=== PATIENT | female | born 2000 | race Caucasian/White ===

== ENCOUNTER 2018-06-24 17:42 | Emergency (ER) | payer SELFPAY ==
[2018-06-24 17:46] VITALS: BMI 30.2
[2018-06-24 17:48] VITALS: BP 124/84; PULSE 112; RESP 18; TEMP 98.1; O2SAT 98
--- NOTE | 2018-06-24 18:20 | C.PDOC ---
History Of Present Illness 18 y/o female with no PMHx presents to the ED complaining of diffuse abdominal pain for 2 days. When asked to point to location, patient currently indicates epigastric pain, however she notes the pain has been "moving around" the abdomen. Patient also complains of bilateral leg pain. Mom at bedside noticed patient has complained of pruritic rash to the bilateral axilla and groin area for 2-3 weeks. Patient has been scratching the areas a lot, and also reports weird smell to affected areas. Otherwise she denies any fevers, chills, nausea, vomiting, or diarrhea. Time Seen by Provider: 06/24/18 18:17 Chief Complaint (Nursing): Female Genitourinary History Per: Patient History/Exam Limitations: no limitations Onset/Duration Of Symptoms: Days (x 2) Current Symptoms Are (Timing): Still Present Location Of Pain/Discomfort: Epigastric Past Medical History Reviewed: Historical Data, Nursing Documentation, Vital Signs Vital Signs: Last Vital Signs Temp 98.1 F 06/24/18 17:45 Pulse 112 H 06/24/18 17:45 Resp 18 06/24/18 17:45 BP 124/84 06/24/18 17:45 Pulse Ox 98 06/24/18 17:45 Surgical History: No Surg Hx Family History: States: No Known Family Hx - Social History Hx Tobacco Use: No Hx Alcohol Use: No Hx Substance Use: No - Immunization History Hx Tetanus Toxoid Vaccination: No Hx Influenza Vaccination: No Hx Pneumococcal Vaccination: No Review Of Systems Constitutional: Negative for: Fever, Chills Gastrointestinal: Positive for: Abdominal Pain. Negative for: Nausea, Vomiting, Diarrhea Genitourinary: Negative for: Dysuria, Frequency, Hematuria, Vaginal Discharge, Vaginal Bleeding Skin: Positive for: Rash Neurological: Negative for: Weakness, Dizziness Physical Exam - Physical Exam Appears: Well, Non-toxic, No Acute Distress Skin: Dry, Rash (+ dry scaly skin to the groin and bilateral axilla, with excoriations) Head: Atraumatic, Normacephalic Eye(s): bilateral: Normal Inspection, PERRL, EOMI Oral Mucosa: Moist Neck: Normal ROM Chest: Symmetrical Cardiovascular: Rhythm Regular, No Murmur Respiratory: Normal Breath Sounds, No Accessory Muscle Use Gastrointestinal/Abdominal: Soft, Tenderness (mild epigastric tenderness on deep palpation, non-tender LUQ), No Guarding, No Rebound Back: Normal Inspection Extremity: Bilateral: Atraumatic, Normal Color And Temperature Neurological/Psych: Oriented x3, Normal Speech ED Course And Treatment O2 Sat by Pulse Oximetry: 98 (RA) Pulse Ox Interpretation: Normal Medical Decision Making Medical Decision Making: Plan: Will treat for fungal infection with superimposed bacterial infection. Given Rx for Clotrimazole 1% and Bactroban creams. Patient will also be given Rx for Pepcid for likely GERD. Advised to follow up in the clinic. Disposition Counseled Patient/Family Regarding: Diagnosis, Need For Followup, Rx Given - Disposition Referrals: [facility] [Outside] Disposition: HOME/ ROUTINE Disposition Time: 19:16 Condition: STABLE Prescriptions: Clotrimazole 1% Cream [Lotrimin 1% CREAM] 1 applic TD BID #1 tube Famotidine [Pepcid] 1 tab PO BID #30 tab Mupirocin 2% Cream [Bactroban Cream] 1 applic TOP BID #1 tube Instructions: Skin Rash (DC), Gastritis (DC) Forms: [facility] [facility] [employer] [facility] (Spanish), General Discharge Instructions - POA Present On Arrival: None - Clinical Impression Clinical Impression: Gastritis, Fungal infection - Scribe Statement The provider has reviewed the documentation as recorded by the Caitlin Ortiz Provider Attestation: All medical record entries made by the Marielaibandrew were at my direction and personally dictated by me. I have reviewed the chart and agree that the record accurately reflects my personal performance of the history, physical exam, medical decision making, and the department course for this patient. I have also personally directed, reviewed, and agree with the discharge instructions and disposition.
[2018-06-24 18:22] LABS: SQUAMOUS EPITHIAL 1 /hpf (0-5); URINE AMORPHOUS SEDIMENT MODERATE /ul (<OCC); URINE BILIRUBIN NEGATIVE (NEGATIVE); URINE BLOOD NEGATIVE (NEGATIVE); URINE CLARITY Hazy (Clear); URINE COLOR Yellow (YELLOW); URINE GLUCOSE (UA) NORMAL (Normal); URINE LEUKOCYTE ESTERASE NEG Leu/uL (Negative); URINE PROTEIN 1+ mg/dL (NEGATIVE); URINE UROBILINOGEN NORMAL mg/dL (0.2-1.0); WBC CLUMPS FEW /hpf
== END 2018-06-24 19:31 | disposition home or self-care (01) ==
LOC: C.ER 17:42
DX: K29.70 Gastritis, unspecified, without bleeding (principal); B49 Unspecified mycosis

== ENCOUNTER 2018-07-03 11:14 | Emergency (ER) | payer SELFPAY ==
[2018-07-03 11:14] VITALS: BMI 30.2
[2018-07-03 11:27] VITALS: RESP 18; TEMP 98.3; O2SAT 98
--- NOTE | 2018-07-03 11:50 | C.PDOC ---
History Of Present Illness 18 y/o female with no significant PMH presents to ED c/o inner thigh and underarm rash x 6 months that has worsened over the last 1 month. Rash is very pruiritic, dry, and sometimes smith. Pt seen for similar complaints 8 days ago and prescribed clotrimazole and mupirocin ointments, which she has been using without relief. Has not seen dermatology or PMD. Associated intermittent dysuria. No sick contacts. Denies fevers, chills, numbness, weakness, paresthesias, URI symptoms, genital rash, vaginal symptoms, or any other associa candis symptoms. Time Seen by Provider: 07/03/18 11:29 Chief Complaint (Nursing): Abnormal Skin Integrity History Per: Patient History/Exam Limitations: no limitations Onset/Duration Of Symptoms: Days Current Symptoms Are (Timing): Still Present Past Medical History Reviewed: Historical Data, Nursing Documentation, Vital Signs Vital Signs: Last Vital Signs Temp 98.3 F 07/03/18 11:23 Pulse 81 07/03/18 11:23 Resp 18 07/03/18 11:23 BP 116/71 07/03/18 11:23 Pulse Ox 98 07/03/18 11:23 - Medical History PMH: No Chronic Diseases Family History: States: No Known Family Hx - Social History Hx Tobacco Use: No Hx Alcohol Use: No Hx Substance Use: No - Immunization History Hx Tetanus Toxoid Vaccination: No Hx Influenza Vaccination: No Hx Pneumococcal Vaccination: No Review Of Systems Constitutional: Negative for: Fever, Chills Eyes: Negative for: Vision Change ENT: Negative for: Nose Discharge, Throat Pain, Throat Swelling Cardiovascular: Negative for: Chest Pain, Palpitations, Light Headedness Respiratory: Negative for: Cough, Shortness of Breath Gastrointestinal: Negative for: Nausea, Vomiting, Abdominal Pain Musculoskeletal: Negative for: Neck Pain, Back Pain Skin: Positive for: Rash Neurological: Negative for: Weakness, Numbness, Altered Mental Status, Dizziness Physical Exam - Physical Exam Appears: Well, Non-toxic, No Acute Distress Skin: Normal Color, Warm, Dry, Other (dry, scaled, prutitic rash to left inner thigh and under right arm suspicious for fungal infection) Head: Atraumatic, Normacephalic Eye(s): bilateral: Normal Inspection, PERRL, EOMI Nose: Normal Oral Mucosa: Moist Throat: Normal, No Erythema, No Exudate, No Drooling, No Mass Neck: Normal, Normal ROM, No Midline Cervical Tenderness, No Paracervical Tenderness Lymphatic: Normal Exam Cardiovascular: Rhythm Regular Respiratory: Normal Breath Sounds Gastrointestinal/Abdominal: Normal Exam, Soft, No Tenderness Back: Normal Inspection Extremity: Normal ROM, No Tenderness, Capillary Refill (<2s), Other (dry, scaled, prutitic rash to left inner thigh and under right arm suspicious for fungal infection) Extremity: Bilateral: Atraumatic, Normal ROM Pulses: Left Radial: Normal, Right Radial: Normal Neurological/Psych: Oriented x3, Normal Speech, Normal Motor, Normal Sensation Gait: Steady ED Course And Treatment O2 Sat by Pulse Oximetry: 98 Medical Decision Making Medical Decision Making: Initial Plan: * UA * Reassess and Disposition UA unremarkable. No signs of secondary infection to the area. No redness, swelling. Will change antifungal cream, advise stopping mupirocin, and provide dermatology followup. Pt verbalized understanding and states she will followup as instructed. Diagnostic testing results and plan of care discussed with patient. Strict instructions given regarding prescription use, importance of followup, and signs/symptoms to return to ER including fever, chills, worsening rash, or any other new/worsening symptoms. Pt verbalized understanding of discussion. Patient is A&Ox3, ambulating with steady gait, with vital signs stable for discharge. Disposition - Disposition Referrals: [facility] [Outside] Jen Luo MD [Non-Staff] - Disposition: HOME/ ROUTINE Disposition Time: 12:20 Condition: GOOD Additional Instructions: Apply ketoconazole cream twice daily for 4 weeks or 1 week after lesions heal Keep area dry Followup with dermatology within 2 days Followup with clinic within 2 days Return to ER with any new/worsening symptoms Prescriptions: Ketoconazole 2% Cr [Nizoral] 1 applic TOP BID #1 tube Instructions: Jock Itch (DC) Forms: General Discharge Instructions, [facility] (Vietnamese), Work Excuse - Clinical Impression Clinical Impression: Tinea
[2018-07-03 12:35] LABS: SQUAMOUS EPITHIAL 2 /hpf (0-5); URINE BILIRUBIN NEGATIVE (NEGATIVE); URINE BLOOD NEGATIVE (NEGATIVE); URINE CLARITY Clear (Clear); URINE COLOR Yellow (YELLOW); URINE GLUCOSE (UA) NORMAL (Normal); URINE LEUKOCYTE ESTERASE NEG Leu/uL (Negative); URINE PROTEIN NEGATIVE (NEGATIVE); URINE UROBILINOGEN NORMAL mg/dL (0.2-1.0)
[2018-07-03 12:55] VITALS: BP 123/72; PULSE 68
== END 2018-07-03 12:55 | disposition home or self-care (01) ==
LOC: C.ER 11:14
DX: B35.9 Dermatophytosis, unspecified (principal)

== ENCOUNTER 2018-07-16 11:43 | Emergency (ER) | payer SELFPAY ==
[2018-07-16 11:43] VITALS: BMI 30.2
[2018-07-16] MEDS ORDERED: Sodium Chloride 0.9% 1,000 ML IV ONE (12:22)
[2018-07-16] MEDS ORDERED: Sodium Chloride 0.9% 1,000 ML ONE (12:47)
[2018-07-16 13:05] LABS: BASO % 0.4 % (0.0-2.0); EOS # 0.1 K/uL (0.0-0.7); EOS % 1.2 % (0.0-4.0); HEMOGLOBIN 11.2 g/dL (11.0-16.0); LYMPH # 2.2 K/uL (1.0-4.3); LYMPH % 18.8 % (20.0-40.0); MEAN CELL VOLUME 72.6 fL (81.0-99.0); MEAN CORPUSCULAR HEMOGLOBIN 22.7 pg (27.0-31.0); MEAN CORPUSCULAR HGB CONC 31.3 g/dL (33.0-37.0); MEAN PLATELET VOLUME 9.8 fL (7.2-11.7); MONO # 0.5 K/uL (0.0-0.8); MONO % 4.7 % (0.0-10.0); NEUT # 8.7 K/uL (1.8-7.0); NEUT % 74.9 % (50.0-75.0); NRBC % 0.1 % (0.0-2.0); RBC 4.94 Mil/uL (3.80-5.20); RED CELL DISTRIBUTION WIDTH 14.7 % (11.5-14.5); WHITE BLOOD COUNT 11.6 K/uL (4.8-10.8)
[2018-07-16 13:10] LABS: HCG,QUALITATIVE URINE NEGATIVE (NEGATIVE)
[2018-07-16 13:14] LABS: SQUAMOUS EPITHIAL 1 /hpf (0-5); URINE BILIRUBIN NEGATIVE (NEGATIVE); URINE BLOOD NEGATIVE (NEGATIVE); URINE CLARITY Clear (Clear); URINE COLOR Yellow (YELLOW); URINE GLUCOSE (UA) NORMAL (Normal); URINE LEUKOCYTE ESTERASE NEG Leu/uL (Negative); URINE PROTEIN NEGATIVE (NEGATIVE); URINE UROBILINOGEN NORMAL mg/dL (0.2-1.0)
[2018-07-16 13:25] LABS: ALB/GLOB RATIO 1.3 (1.0-2.1); ALBUMIN 4.6 g/dL (3.5-5.0); ALT/SGPT 25 U/L (9-52); AST/SGOT 28 U/L (14-36); BLOOD UREA NITROGEN 12 mg/dL (7-17); CALCIUM 9.4 mg/dl (8.6-10.4); GFR NON-AFRICAN AMERICAN > 60; LIPASE 41 U/L (23-300)
--- NOTE | 2018-07-16 13:42 | C.PDOC ---
History Of Present Illness 18 year old female presents to the ED for evaluation of epigastric pain and abdominal pain radiating to the lower back associated with nausea that began at 5am today. The patient also complains of rash to the axilla and bilateral lower extremities. She reports prior ED visit for the rash where she was given a cream, notes no improvement. Denies fever, chills, sick contact, vomiting, and any other associated symptoms. Time Seen by Provider: 07/16/18 12:05 Chief Complaint (Nursing): Abdominal Pain History Per: Patient History/Exam Limitations: no limitations Onset/Duration Of Symptoms: Hrs Current Symptoms Are (Timing): Still Present Location Of Pain/Discomfort: Diffuse, Epigastric Radiation Of Pain To:: Back Associated Symptoms: Nausea. denies: Fever, Chills, Vomiting Recent travel outside of the [place]: No Past Medical History Reviewed: Historical Data, Nursing Documentation, Vital Signs Vital Signs: Last Vital Signs Temp 98.3 F 07/16/18 11:55 Pulse 98 H 07/16/18 11:55 Resp 18 07/16/18 11:55 BP Pulse Ox 98 07/16/18 11:55 Family History: States: Unknown Family Hx - Social History Hx Tobacco Use: No Hx Alcohol Use: No Hx Substance Use: No - Immunization History Hx Tetanus Toxoid Vaccination: No Hx Influenza Vaccination: No Hx Pneumococcal Vaccination: No Review Of Systems Except As Marked, All Systems Reviewed And Found Negative. Constitutional: Negative for: Fever, Chills Gastrointestinal: Positive for: Nausea, Abdominal Pain (diffuse. ). Negative for: Vomiting Skin: Positive for: Rash (to axilla and bilateral lower extremities. ) Physical Exam - Physical Exam Appears: Well, Non-toxic, No Acute Distress Skin: Warm, Dry Head: Atraumatic, Normacephalic Eye(s): bilateral: Normal Inspection Oral Mucosa: Moist Neck: Normal ROM, Supple Chest: Symmetrical Cardiovascular: Rhythm Regular, No Murmur Respiratory: Normal Breath Sounds, No Rales, No Rhonchi, No Wheezing Gastrointestinal/Abdominal: Soft, Tenderness (mild diffuse tenderness. ) Back: Normal Inspection, No CVA Tenderness Extremity: Normal ROM (x4) Neurological/Psych: Oriented x3, Normal Speech, Normal Cognition ED Course And Treatment - Laboratory Results Result Diagrams: 07/16/18 12:59 07/16/18 12:59 Lab Results: Total Bilirubin 0.4 mg/dL (0.2-1.3) 07/16/18 12:59 AST 28 U/L (14-36) 07/16/18 12:59 ALT 25 U/L (9-52) 07/16/18 12:59 Alkaline Phosphatase 73 U/L (38-126) 07/16/18 12:59 Total Protein 8.2 g/dL (6.3-8.3) 07/16/18 12:59 Albumin 4.6 g/dL (3.5-5.0) 07/16/18 12:59 Globulin 3.6 gm/dL (2.2-3.9) 07/16/18 12:59 Albumin/Globulin Ratio 1.3 (1.0-2.1) 07/16/18 12:59 Lipase 41 U/L (23-300) 07/16/18 12:59 Urine Color Yellow (YELLOW) 07/16/18 12:59 Urine Clarity Clear (Clear) 07/16/18 12:59 Urine pH 5.0 (5.0-8.0) 07/16/18 12:59 Ur Specific [place] 1.020 (1.003-1.030) 07/16/18 12:59 Urine Protein Negative mg/dL (NEGATIVE) 07/16/18 12:59 Urine Glucose (UA) Normal mg/dL (Normal) 07/16/18 12:59 Urine Ketones Negative mg/dL (NEGATIVE) 07/16/18 12:59 Urine Blood Negative (NEGATIVE) 07/16/18 12:59 Urine Nitrate Negative (NEGATIVE) 07/16/18 12:59 Urine Bilirubin Negative (NEGATIVE) 07/16/18 12:59 Urine Urobilinogen Normal mg/dL (0.2-1.0) 07/16/18 12:59 Ur Leukocyte Esterase Neg Charmaine/uL (Negative) 07/16/18 12:59 Urine WBC (Auto) < 1 /hpf (0-5) 07/16/18 12:59 Ur Squamous Epith Cells 1 /hpf (0-5) 07/16/18 12:59 Urine HCG, Qual Negative (NEGATIVE) 07/16/18 12:59 Urine HCG, Qual Negative (NEGATIVE) 07/16/18 12:59 O2 Sat by Pulse Oximetry: 98 (RA) Pulse Ox Interpretation: Normal - CT Scan/US US ABD Other Rad Studies (CT/US): Read By Radiologist CT/US Interpretation: FINDINGS: LIVER: Measures 15.9 cm in length. Normal echogenicity of the liver parenchyma. No mass. No intrahepatic bile duct dilatation. GALLBLADDER: Unremarkable. No gallstones. COMMON BILE DUCT: Jyotsna sures 3.0 mm. No stones. No dilatation. PANCREAS: The head and tail of the pancreas is obscured by overlying bowel gas with remainder unremarkable. RIGHT KIDNEY: Measures 11.8 cm in length. Corticomedullary echotexture is unremarkable. No cystic lesion or mass identified. No urolithiasis. Mild fullness of the pelvocaliceal system is identified, borderline for hydronephrosis. AORTA: No aneurysmal dilatation. IVC: Unremarkable. OTHER FINDINGS: None . IMPRESSION: 1. Borderline right hydronephrosis. No urolithiasis identified within the kidney. No cyst or solid renal parenchymal mass identified or perinephric fluid collection. 2. The body of pancreas is unremarkable the remainder obscured by overlying bowel gas. Medical Decision Making Medical Decision Making: Initial plan: -Obstructive series -US ABD Limited -Zofran -Pepcid -Blood sent. -HCG Urine -Urinalysis On re-exam, the patient remains active and alert. Reports improvement of symptoms. Lungs are CTA, heart is RRR, abdomen is soft, non-tender and the patient is tolerating PO well. Follow up with the medical doctor/clinic within 1-2 days. Return if worsened. Disposition - Disposition Referrals: Mani Appiah MD [Staff Provider] - Disposition: HOME/ ROUTINE Disposition Time: 16:00 Condition: GOOD Additional Instructions: Follow up with the medical doctor/clinic within 1-2 days. Return if worsened. Prescriptions: Famotidine [Pepcid] 20 mg PO BID #20 tab Instructions: Acid Reflux (Gastroesophageal Reflux Disease) in Adults Forms: [facility] (Mongolian) - Clinical Impression Clinical Impression: GERD (gastroesophageal reflux disease) - PA / PORT PURSER / Resident Statement MD/DO has reviewed & agrees with the documentation as recorded. - Scribe Statement The provider has reviewed the documentation as recorded by the Scribe (Yesenia Scott) All medical record entries made by the Scribe were at my direction and personally dictated by me. I have reviewed the chart and agree that the record accurately reflects my personal performance of the history, physical exam, medical decision making, and the department course for this patient. I have also personally directed, reviewed, and agree with the discharge instructions and disposition.
--- NOTE | 2018-07-16 14:30 | US ---
Date of service: 07/16/2018 HISTORY: RUQ/epig pain COMPARISON: None. TECHNIQUE: Sonographic evaluation of the right upper quadrant of the abdomen. FINDINGS: LIVER: Measures 15.9 cm in length. Normal echogenicity of the liver parenchyma. No mass. No intrahepatic bile duct dilatation. GALLBLADDER: Unremarkable. No gallstones. COMMON BILE DUCT: Measures 3.0 mm. No stones. No dilatation. PANCREAS: The head and tail of the pancreas is obscured by overlying bowel gas with remainder unremarkable. RIGHT KIDNEY: Measures 11.8 cm in length. Corticomedullary echotexture is unremarkable. No cystic lesion or mass identified. No urolithiasis. Mild fullness of the pelvocaliceal system is identified, borderline for hydronephrosis. AORTA: No aneurysmal dilatation. IVC: Unremarkable. OTHER FINDINGS: None . IMPRESSION: 1. Borderline right hydronephrosis. No urolithiasis identified within the kidney. No cyst or solid renal parenchymal mass identified or perinephric fluid collection. 2. The body of pancreas is unremarkable the remainder obscured by overlying bowel gas.
[2018-07-16] MEDS ORDERED: Belladonna-Phenobarbital PO STA (15:01)
[2018-07-16] MEDS ORDERED: Alum-Mag Hydrox-Simethicone Susp (30 mL) PO STA (15:01)
[2018-07-16] MEDS ORDERED: Belladonna-Phenobarbital ONE (15:47)
[2018-07-16] MEDS ORDERED: Aluminum Hydroxide/Magnesium Hydroxide Susp (30 mL) ONE (15:48)
[2018-07-16 16:26] VITALS: BP 105/70; PULSE 60; RESP 16; TEMP 98.1
[2018-07-16 18:01] VITALS: O2SAT 98
--- NOTE | 2018-07-16 18:24 | RAD ---
Date of service: 07/16/2018 PROCEDURE: Radiographs of the chest and abdomen (obstructive series) HISTORY: diffuse abd pain, gastritis COMPARISON: No prior. TECHNIQUE: AP radiograph of the chest, with upright and supine radiographs of the abdomen. FINDINGS: CHEST: Lungs: Clear. Cardiovascular: Normal size heart. No pulmonary vascular congestion. No aortic atherosclerotic calcification present Pleura: No pleural fluid. No pneumothorax. Other findings: None. ABDOMEN AND PELVIS: Bowel: Unremarkable bowel gas pattern. No evidence of mechanical obstruction. Free air: None. Bones: Unremarkable. Other findings: None. IMPRESSION: Unremarkable radiographs of chest and abdomen. No evidence of mechanical bowel obstruction.
== END 2018-07-16 16:23 | disposition home or self-care (01) ==
LOC: C.ER 11:43
DX: K21.9 Gastro-esophageal reflux disease without esophagitis (principal)
CPT/HCPCS: 74022; 76705; 80053; 81001; 83690; 84703; 85025; 96374; 96375; 99285; J2405; J7030